=== PATIENT | male | born 1965 | race Caucasian/White ===

== ENCOUNTER → 2017-06-05 | Outpatient (CLI) | payer OTHER ==
--- NOTE | 2017-06-05 12:41 | MRI ---
MRI left knee without contrast Indication: Knee pain and popping Technique: Multisequence, multiplanar MR images of the left knee were obtained without IV contrast. Comparison: None Findings: No acute fracture or malalignment is identified. There is mild chondrosis of the medial femorotibial compartment, which demonstrates partial-thickness cartilage fissuring overlying the central weight-bearing medial femoral condyle. The articular carti stephanie of the lateral femorotibial and patellofemoral compartments is intact without significant chondr osis. No large full-thickness cartilage defects are identified. There is a small-moderate joint effus ion with evidence of synovitis. No loose intra-articular bodies or significant popliteal fossa cyst i dentified. There is a suspected focal horizontal cleavage tear of the medial meniscal body, which extends to the inferior articular surface (best appreciated on coronal PD image 801). The lateral meniscus is intac t. The ACL is intact and demonstrates diffuse intermediate intrasubstance signal, compatible with muc oid degeneration. The PCL is intact. The superficial MCL is intact but mildly thickened with trace hess rrounding interstitial edema. The FCL, remaining posterior lateral ligamentous complex and extensor m echanism are unremarkable. 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 Small suspected nondisplaced horizontal cleavage tear of the medial meniscal body. Grade 1 sprain of the superficial MCL. Small-moderate joint effusion with evidence of synovitis, mucoid ACL. Reported By:
== END | disposition home or self-care (01) | DRG 556 ==
LOC: RAD 10:45
PROVIDERS: ATTEND Internal Medicine
DX: M25.562 Pain in left knee (principal); S83.412A Sprain of medial collateral ligament of left knee, initial encounter; X58.XXXA Exposure to other specified factors, initial encounter; M65.88 Other synovitis and tenosynovitis, other site
CPT/HCPCS: 73721